=== PATIENT | male | born 1975 | race Caucasian/White ===

== ENCOUNTER 2017-08-31 20:54 | Emergency (ER) | payer OTHER ==
[~2017-08-31] VITALS: Ht 167.6 cm; Wt 77.1 kg
[~2017-08-31 20:54] MED LIST: FLEXERIL PO; NOHOMEMEDICATIONS
[2017-08-31] MEDS ORDERED: GABAPENTIN 100100 MG (21:35)
[2017-08-31] MEDS ORDERED: IBUPROFEN 800800 M1 PO (22:29)
[2017-08-31 22:48] VITALS: BP 122/78
== END 2017-08-31 22:49 | disposition home or self-care (01) ==
LOC: M.ERS 20:54
DX: S93.491A Sprain of other ligament of right ankle, initial encounter (principal); X50.1XXA Overexertion from prolonged static or awkward postures, initial encounter; Y93.89 Activity, other specified; Y92.89 Other specified places as the place of occurrence of the external cause; Y99.8 Other external cause status